=== PATIENT | male | born 1960 | race Caucasian/White ===

== ENCOUNTER 2022-07-22 15:08 | Inpatient (IN) | payer BC, SELFPAY ==
[2022-07-22 15:11] VITALS: BP 142/94; PULSE 84; RESP 20; TEMP 36.9; O2SAT 97; BMI 20.8
--- NOTE | 2022-07-22 15:38 | EDS_ITS ---
HPI History of Present Illness Chief Complaint: Seizure Informant: patient Onset/Context/Timing Onset: Today Context: Sudden Onset Timing: Intermittent Quality: Unknown Location: Generalized Worsened by: Nothing Relieved by: Nothing Narrative Narrative: Patient presents with a seizure that occurred today. Patient states he has had seizures in the past and was taken off his antiepileptics approximately 6 months ago. Patient states his seizures were due to alcohol withdrawal. Patient states that he had some nausea and vomiting earlier this week and was unable to drink any alcohol 2 days ago because of this. Patient states she normally drinks 2 small bottles of Haris Beam per day. Patient states that the seizure occurred while he was at work. Patient states it was unwitnessed. Patient is unsure how long it lasted for. Patient states he felt dizzy prior to the seizure. Patient denies biting his tongue. [facility] Medical History HTN (hypertension) Seizures Home Medications amlodipine 2.5 mg PO/SL DAILY bp 07/22/22 [History Last Taken 07/21/22] lisinopril 20 mg tablet 20 mg PO DAILY bp 07/22/22 [History Last Taken 07/21/22] metoprolol tartrate 50 mg PO/SL DAILY bp 07/22/22 [History Last Taken 07/21/22] Allergy/AdvReac Type Severity Reaction Status Date / Time No Known Allergies Allergy Verified 07/22/22 15:09 Surgical History no surgical history no surgical history Social History Smoking Status: Current every day smoker tobacco type: cigarettes alcohol intake: current alcohol intake frequency: 3 or more drinks per day Alcohol type: hard liquor ROS ROS ED Constitutional Constitutional ED: Denies chills or fever(s) Eyes Eyes: Denies blurry vision or change in vision ENT ENT ED: Reports rhinorrhea; Denies sore throat Cardiovascular Cardiovascular: Denies chest pain or palpitations Respiratory/Chest Respiratory/Chest: Denies cough or dyspnea Gastrointestinal Gastrointestinal: Reports nausea and vomiting Genitourinary Genitourinary ED: Denies dysuria or hematuria Musculoskeletal Musculoskeletal: Denies back pain or neck pain Integumentary Denies abscess or rash Neurologic Neurologic: Denies headache(s) or weakness Allergic/Immunologic Allergic/Immunologic ED: Denies mouth swelling or urticaria EXAM Physical Exam Const Vital Signs: 07/22/22 15:11 07/22/22 17:12 07/22/22 18:33 Temperature 98.4 F 98.4 F Temperature Source Oral Oral Pulse Rate 84 83 87 Respiratory Rate 20 H 22 H 22 H Blood Pressure 142/94 H 146/90 H 146/90 H Blood Pressure Mean 110 108 108 Blood Pressure Source Blood Pressure Position Blood Pressure Location Pulse Ox 97 100 98 Oxygen Delivery Method Room Air Room Air Room Air 07/22/22 18:49 Temperature Temperature Source Pulse Rate 84 Respiratory Rate 18 Blood Pressure 138/89 H Blood Pressure Mean 105 Blood Pressure Source Monitor Blood Pressure Position Semi-Fowlers Blood Pressure Location Right Arm Pulse Ox 98 Oxygen Delivery Method Room Air Positive well nourished and well developed General Appearance ED: well developed HEENT Reports moist mucous membranes Neck supple and no JVD Resp normal respiratory effort and clear to auscultation bilaterally Cardio regular rate, regular rhythm and no murmurs GI normal to inspection, nondistended, normoactive bowel sounds and non-tender Palpation: soft Extremity normal to inspection General Extremety ED: Negative for edema or tenderness General Extremity: Negative for edema Neuro oriented x3, CN's II-XII intact bilaterally and no sensory deficits noted Sensorium / Orientation: alert Motor Exam: strength 5/5 throughout Psych mental status grossly normal Skin no rashes or lesions noted MDM MDM MDM Narrative Medical decision making narrative: Seizure precautions were maintained. Patient had no further seizure activity here in the emergency department. Patient was placed on continuous cardiac and pulse oximeter monitors. CBC was essentially within normal limits. PT with INR and PTT were within normal limits. Comprehensive metabolic profile showed a creatinine of 1.57. There are no prior values for comparison. Potassium was 2.8. Patient was given a dose of oral potassium here. Lactate was normal at 2.0. Serum alcohol level was less than 3. Urinalysis shows leukocyte esterase of 100. There were 5-10 white blood cells. There is 1+ bacteria. Nitrates were positive. Urine culture was ordered. Patient was given a dose of Keflex. Patient is requesting detox from alcohol. Case was discussed with the hospitalist. He will admit the patient for alcohol detox. Patient was given a dose of phenobarbital. Patient understood and was agreeable with plan. All questions were answered. Lab Data Attestation: I reviewed the patient's lab results. Labs: Laboratory Results - last 24 hr 07/22/22 07/22/22 07/22/22 15:45 15:45 15:45 WBC 9.1 RBC 2.91 L Hgb 12.6 L Hct 34.9 L MCV 119.9 H MCH 43.3 H MCHC 36.1 H RDW Std Deviation 60.2 H RDW Coeff of Maryana 13.4 Plt Count 122 L MPV 11.1 Immature Gran % (Auto) 1.300 H Neut % (Auto) 81.0 H Lymph % (Auto) 8.9 L [place] % (Auto) 8.3 Eos % (Auto) 0.2 Baso % (Auto) 0.3 Absolute Neuts (auto) 7.3 Absolute Lymphs (auto) 0.81 L Nucleated RBC % 0 PT 13.2 INR 1.0 APTT 26.5 Sodium 137 Potassium 2.8 L Chloride 100 Carbon Dioxide 28.0 Anion Gap 9 BUN 12 Creatinine 1.57 H Estim Creat Clear Calc 41.99 Est GFR (MDRD) Af Amer 58 L Est GFR (MDRD) Non-Af 48 L BUN/Creatinine Ratio 7.6 L Glucose 123 H Lactic Acid Calcium 8.4 L Phosphorus Magnesium Total Bilirubin 1.10 H AST 86 H ALT 48 Alkaline Phosphatase 178 H Total Protein 7.0 Albumin 3.7 Globulin 3.3 Albumin/Globulin Ratio 1.1 Urine Color Urine Clarity Urine pH Ur Specific [place] Urine Protein Urine Glucose (UA) Urine Ketones Urine Occult Blood Urine Nitrite Urine Bilirubin Urine Urobilinogen Ur Leukocyte Esterase Urine RBC Urine WBC Ur Squamous Epith Cells Urine Bacteria Hyaline Casts Urine Mucus Ethyl Alcohol 07/22/22 07/22/22 07/22/22 15:45 15:45 15:45 WBC RBC Hgb Hct MCV MCH MCHC RDW Std Deviation RDW Coeff of Maryana Plt Count MPV Immature Gran % (Auto) Neut % (Auto) Lymph % (Auto) [place] % (Auto) Eos % (Auto) Baso % (Auto) Absolute Neuts (auto) Absolute Lymphs (auto) Nucleated RBC % PT INR APTT Sodium Potassium Chloride Carbon Dioxide Anion Gap BUN Creatinine Estim Creat Clear Calc Est GFR (MDRD) Af Amer Est GFR (MDRD) Non-Af BUN/Creatinine Ratio Glucose Lactic Acid 2.0 Calcium Phosphorus 2.0 L Magnesium 1.3 L Total Bilirubin AST ALT Alkaline Phosphatase Total Protein Albumin Globulin Albumin/Globulin Ratio Urine Color Urine Clarity Urine pH Ur Specific [place] Urine Protein Urine Glucose (UA) Urine Ketones Urine Occult Blood Urine Nitrite Urine Bilirubin Urine Urobilinogen Ur Leukocyte Esterase Urine RBC Urine WBC Ur Squamous Epith Cells Urine Bacteria Hyaline Casts Urine Mucus Ethyl Alcohol < 3.0 07/22/22 16:00 WBC RBC Hgb Hct MCV MCH MCHC RDW Std Deviation RDW Coeff of Maryana Plt Count MPV Immature Gran % (Auto) Neut % (Auto) Lymph % (Auto) [place] % (Auto) Eos % (Auto) Baso % (Auto) Absolute Neuts (auto) Absolute Lymphs (auto) Nucleated RBC % PT INR APTT Sodium Potassium Chloride Carbon Dioxide Anion Gap BUN Creatinine Estim Creat Clear Calc Est GFR (MDRD) Af Amer Est GFR (MDRD) Non-Af BUN/Creatinine Ratio Glucose Lactic Acid Calcium Phosphorus Magnesium Total Bilirubin AST ALT Alkaline Phosphatase Total Protein Albumin Globulin Albumin/Globulin Ratio Urine Color Brianda Urine Clarity Sl. Cloudy Urine pH 6.0 Ur Specific [place] 1.025 Urine Protein 100 H Urine Glucose (UA) Normal Urine Ketones 15 H Urine Occult Blood 25 H Urine Nitrite Positive H Urine Bilirubin 3 H Urine Urobilinogen 8 H Ur Leukocyte Esterase 100 H Urine RBC 0-5 SEEN Urine WBC 5-10 SEEN Ur Squamous Epith Cells 0 SEEN Urine Bacteria 1+ Hyaline Casts 10-25 SEEN Urine Mucus 1+ Ethyl Alcohol Radiography Diagnostic Testing: Clinical Impression(s) from Imaging Studies Brain CT 07/22/22 15:41 IMPRESSION: There are no acute intracranial findings. Electronically Signed: Conner Sargent MD at 16:24 EDT , Discharge Plan Dx/Rx/DC Orders Clinical Impression: Alcohol withdrawal seizure, Desire for detoxification, Alcohol abuse, Hypokalemia Disposition Disposition: Acute Care Hospital [facility] Discharge Date/Time: 07/22/22 19:30
--- NOTE | 2022-07-22 15:41 | EKG12_ITS ---
Test Reason : SYNCOPE Blood Pressure : / mmHG Vent. Rate : 087 BPM Atrial Rate : 087 BPM P-R Int : 162 ms QRS Dur : 100 ms QT Int : 414 ms P-R-T Axes : 073 094 079 degrees QTc Int : 498 ms Normal sinus rhythm Incomplete right bundle branch block Possible Right ventricular hypertrophy Prolonged QT Abnormal ECG Confirmed by JOSE DE LA PAZ, DEIRDRE ([id number]), features editor DEANNA KNUTSON ([id number]) on 07/24/2022 10:03:25 AM Referred By: ROSA MARIA Confirmed By:DEIRDRE GARCIA MD
--- NOTE | 2022-07-22 15:41 | CT_ITS ---
STUDY: CT BRAIN WITHOUT CONTRAST REASON FOR EXAM: Male, 61 years old. Seizure TECHNIQUE: Transaxial CT imaging of the brain was performed without administration of intravenous contrast material. Individualized dose optimization techniques were used for this CT. COMPARISON: None FINDINGS: Normal calvarium. Normal soft tissues. Normal size ventricles and extra-axial spaces for the patient''s age. Normal white matter tracts of the cerebral hemispheres. Normal basal ganglia and thalami. Normal brainstem. Normal cerebellum. There is no intracranial hemorrhage. There are no findings of an acute ischemic infarction. There is sinus disease. ASPECTS 10 CT/Brain/Head without Contrast IMPRESSION: There are no acute intracranial findings. Electronically Signed: Conner Sargent MD at 16:24 EDT ,
[2022-07-22 16:01] LABS: Absolute Lymphocyte Count 0.81 X10^3/uL (0.83-4.51); Absolute Neutrophil Count 7.3 X10^3/uL (2.0-7.7); Basophil# 0.03 X10^3/uL; Basophil% 0.3 % (0-1); Eosinophil# 0.02 X10^3/uL; Eosinophils% 0.2 % (0-5); Hematocrit 34.9 % (40-54); Hemoglobin 12.6 g/dL (13.0-16.5); Lymphocyte # 0.81 X10^3/ul (0.83-4.51); Lymphocyte % 8.9 % (19-41); Mean Corp Hgb Conc 36.1 g/dL (32-36); Mean Corpuscular Hgb 43.3 pg (27.0-32.0); Mean Corpuscular Volume 119.9 fL (80-94); Mean Platelet Vol. 11.1 fl (6.2-12.0); Monocyte# 0.75 X10^3/uL; Monocyte% 8.3 % (0-10); NRBC Flagged by Analyzer 0 % (0-5); Neutrophil # 7.34 X10^3/uL (2.7-7.7); Platelet Count 122 K/mm3 (150-450); RBC Distribution Width CV 13.4 % (11.6-14.6); RBC Distribution Width SD 60.2 fl (35.1-43.9); Red Blood Count 2.91 M/mm3 (4.6-6.2); White Blood Count 9.1 K/mm3 (4.4-11.0)
--- NOTE | 2022-07-22 16:02 | NURSING ---
NO OLD EKGS
[2022-07-22 16:07] LABS: Squamous Epithelial Cells - UA 0 SEEN /hpf (0-5)
[2022-07-22 16:10] LABS: Color, Urine Amber (Yellow); Glucose, Dipstick Normal (Normal); Ketone-Dipstick 15 mg/dl (Negative); Leukocyte Esterase-Dipstick 100 /ul (Negative); Nitrite-Dipstick Positive (Negative); Occult Blood-Urine 25 /ul (Negative); Protein-Dipstick 100 mg/dl (Negative); Specific Gravity, Urine 1.025 (1.002-1.030); Urine Clarity Sl. Cloudy (Clear); Urine Urobilinogen 8 mg/dl (Normal)
[2022-07-22 16:16] LABS: Urine Bilirubin Dipstick 3 mg/dL (Negative)
[2022-07-22 16:17] LABS: Prothrombin Time (Protime)PT. 13.2 SECONDS (11.7-14.9)
[2022-07-22 16:18] LABS: ALB/GLOB Ratio 1.1 RATIO (0.9-2.4); AST(SGOT) 86 U/L (15-37); Alanine Aminotransfer ALT/SGPT 48 U/L (16-61); Albumin, Serum 3.7 g/dL (3.2-5.0); Alkaline Phosphatase 178 U/L (45-117); Anion Gap 9 (5-15); BUN 12 mg/dL (7-18); BUN/Creat Ratio 7.6 RATIO (10-20); Calcium,Total 8.4 mg/dL (8.5-10.1); Chloride 100 mmol/L (98-107); Creatinine, Serum 1.57 mg/dL (0.70-1.30); EST Glomerular Filtration Rate 48 mL/min (>60); Est Glom Filt Rate - Afr Amer 58 mL/min (>60); Estimated Creatinine Clearance 41.99 ml/min; Globulin 3.3 g/dL (2.2-4.2); Glucose 123 mg/dL (74-106); Partial Thromboplast Time 26.5 Seconds (24.1-36.2); Potassium 2.8 mmol/L (3.5-5.1); Sodium Level 137 mmol/L (136-145)
[2022-07-22 16:19] LABS: Alcohol, Blood (Medical)-Serum < 3.0 mg/dL
[2022-07-22] MEDS: Potassium Chloride Oral Tablet 20 MEQ 40 MEQ PO (17:06)
[2022-07-22] MEDS: 0.9% Normal Saline 1,000 ML 1000 ML IV (17:06)
[2022-07-22 17:12] VITALS: BP 146/90; PULSE 83; RESP 22; O2SAT 100
[2022-07-22 17:53] LABS: Bacteria 1+ /hpf (None Seen); Hyaline Cast 10-25 SEEN /lpf (0-5); Mucous, Urine 1+ /hpf (<or=2+); Red Blood Cells-Urine 0-5 SEEN /hpf (0-5); White Blood Cells 5-10 SEEN /hpf (0-5)
--- NOTE | 2022-07-22 18:22 | NURSING ---
DR MATAMOROS FOR DR CRANE
[2022-07-22 18:33] VITALS: BP 146/90; PULSE 87; RESP 22; TEMP 36.9; O2SAT 98
[2022-07-22] MEDS: Cephalexin 500 MG Capsule PO (18:42)
[2022-07-22] MEDS: Phenobarbital 32.4 MG Tablet PO (18:42)
[2022-07-22 18:49] VITALS: BP 138/89; PULSE 84; RESP 18; O2SAT 98
--- NOTE | 2022-07-22 19:11 | PCM.HP.STD ---
Documented by User: KRISHAN Koo 07/22/22 19:21 HPI - General General Date of Admission: 07/22/22 Date of Service: 07/22/22 Chief Complaint: Desire for detoxification, alcoholic seizures HPI Narrative TESHA DIEZ, is a 61 M who presents following a seizure at work. Patient states that he has had alcoholic withdrawal seizures in the past. Patient states that his last drink was approximately 8 PM yesterday. Patient states that he would like assistance with withdrawing from alcohol. Patient reports a medical history of hypertension. Patient has not had any seizures in the ER. Patient given first dose of phenobarbital in ER. Patient reports that he drinks anywhere from 2-4 fifths of whiskey a day. Patient also reports that he smokes a pack a day of cigarettes. [facility] Medical History HTN (hypertension) Seizures Home Medications amlodipine 2.5 mg PO/SL DAILY bp 07/22/22 [History Last Taken 07/21/22] lisinopril 20 mg tablet 20 mg PO DAILY bp 07/22/22 [History Last Taken 07/21/22] metoprolol tartrate 50 mg PO/SL DAILY bp 07/22/22 [History Last Taken 07/21/22] Allergy/AdvReac Type Severity Reaction Status Date / Time No Known Allergies Allergy Verified 07/22/22 15:09 Surgical History no surgical history Social History Smoking Status: Current every day smoker tobacco type: cigarettes alcohol intake: current alcohol intake frequency: 3 or more drinks per day Alcohol type: hard liquor ROS Constitutional Constitutional: Reports malaise; Denies anorexia, chills or fatigue Cardiovascular Cardiovascular: Denies chest pain, edema or syncope Respiratory/Chest Respiratory/Chest: Denies cough, shortness of breath at rest, shortness of breath with exertion or wheezing Gastrointestinal Gastrointestinal: Denies abdominal pain, constipation, diarrhea, nausea or vomiting Genitourinary Genitourinary: Denies dysuria Musculoskeletal Musculoskeletal: Denies back pain, extremity pain, joint pain or joint stiffness Integumentary Integumentary: Denies dry skin Neurologic Neurologic: Reports seizures and other Details: Loss of bladder or bowel control, chronic for patient ; Denies abnormal gait, abnormal speech, confusion or dizziness Psychiatric Psychiatric: Denies anxiety or depression Endocrine Endocrinology: Denies change in body appearance Vital Signs Vital Signs Vital Signs: 07/22/22 15:11 07/22/22 17:12 07/22/22 18:33 Temperature 98.4 F 98.4 F Temperature Source Oral Oral Pulse Rate 84 83 87 Respiratory Rate 20 H 22 H 22 H Blood Pressure 142/94 H 146/90 H 146/90 H Blood Pressure Mean 110 108 108 Blood Pressure Source Blood Pressure Position Blood Pressure Location Pulse Ox 97 100 98 Oxygen Delivery Method Room Air Room Air Room Air 07/22/22 18:49 Temperature Temperature Source Pulse Rate 84 Respiratory Rate 18 Blood Pressure 138/89 H Blood Pressure Mean 105 Blood Pressure Source Monitor Blood Pressure Position Semi-Fowlers Blood Pressure Location Right Arm Pulse Ox 98 Oxygen Delivery Method Room Air Weight Weight: 129 lb 3.054 oz Body Mass Index (BMI) 20.8 Physical Exam Const alert, oriented x3 and no apparent distress General Appearance: cooperative HEENT normocephalic and head/scalp atraumatic Eyes conjunctivae normal and no scleral icterus Neck supple General: trachea midline Lymph Lymphatic: no lymphadenopathy noted Resp normal respiratory effort, normal air movement and clear to auscultation bilaterally Cardio regular rate, regular rhythm, S1 normal heart sound, S2 normal heart sound and peripheral pulses 2+ throughout GI normal to inspection, nondistended, normoactive bowel sounds, soft to palpation and non-tender Extremity normal capillary refill and no clubbing, cyanosis or edema Skin General Skin Exam: no breakdown Lesions: no lesions Rashes: no rashes Neuro no focal motor deficits and no sensory deficits noted Speech: speech normal Psych thought process normal, cooperative and affect normal Results Lab / Micro Data Result Diagrams: 07/22/22 15:45 07/22/22 15:45 Labs: Laboratory Results - last 24 hr 07/22/22 15:45: WBC 9.1, RBC 2.91 L, Hgb 12.6 L, Hct 34.9 L, MCV 119.9 H, MCH 43.3 H, MCHC 36.1 H, RDW Std Deviation 60.2 H, RDW Coeff of Maryana 13.4, Plt Count 122 L, MPV 11.1, Immature Gran % (Auto) 1.300 H, Neut % (Auto) 81.0 H, Lymph % (Auto) 8.9 L, [place] % (Auto) 8.3, Eos % (Auto) 0.2, Baso % (Auto) 0.3, Absolute Neuts (auto) 7.3, Absolute Lymphs (auto) 0.81 L, Nucleated RBC % 0 07/22/22 15:45: PT 13.2, INR 1.0, APTT 26.5 07/22/22 15:45: Sodium 137, Potassium 2.8 L, Chloride 100, Carbon Dioxide 28.0, Anion Gap 9, BUN 12, Creatinine 1.57 H, Estim Creat Clear Calc 41.99, Est GFR (MDRD) Af Amer 58 L, Est GFR (MDRD) Non-Af 48 L, BUN/Creatinine Ratio 7.6 L, Glucose 123 H, Calcium 8.4 L, Total Bilirubin 1.10 H, AST 86 H, ALT 48, Alkaline Phosphatase 178 H, Total Protein 7.0, Albumin 3.7, Globulin 3.3, Albumin/Globulin Ratio 1.1 07/22/22 15:45: Ethyl Alcohol < 3.0 07/22/22 15:45: Lactic Acid 2.0 07/22/22 16:00: Urine Color Bri[place], Urine Clarity Sl. Cloudy, Urine pH 6.0, Ur Specific [place] 1.025, Urine Protein 100 H, Urine Glucose (UA) Normal, Urine Ketones 15 H, Urine Occult Blood 25 H, Urine Nitrite Positive H, Urine Bilirubin 3 H, Urine Urobilinogen 8 H, Ur Leukocyte Esterase 100 H, Urine RBC 0-5 SEEN, Urine WBC 5-10 SEEN, Ur Squamous Epith Cells 0 SEEN, Urine Bacteria 1+, Hyaline Casts 10-25 SEEN, Urine Mucus 1+ Radiology Impression Brain CT 07/22/22 15:41 IMPRESSION: There are no acute intracranial findings. Electronically Signed: Conner Sargent MD at 16:24 EDT Reading Location ID and State: [facility] / [place] , Service support , Assessment & Plan Assessment/Plan (1) Alcohol withdrawal seizure: (2) Desire for detoxification: (3) Alcohol abuse: (4) Hypokalemia: PLAN: Plan 1. Desire for detoxification from alcohol secondary to alcohol abuse -Admit to [facility] -Phenobarbital taper -Supportive medications ordered for symptom management -Case management consulted for coordination with 180 2. Hypokalemia -Patient given 40 mEq p.o. potassium given in ER -Potassium chloride 40 mEq IV x1 given -CMP daily -phosphorus and magnesium levels ordered 3. Urinary tract infection -Keflex given in ER, will continue -Urine culture pending 4. Hypertension -Continue lisinopril and amlodipine -Vital signs per protocol, currently stable 5. Tobacco abuse -Nicotine patch ordered daily DVT prophylaxis-encourage ambulation, low risk this patient was seen by OLIMPIA KooC under the supervision of Dr. Mccord. 29 minutes spent in clinical coordination of patient's plan of care. Documented by User: Dr. Washington Mccord, 07/22/22 21:29 HPI - General General Date of Admission: 07/22/22 [facility] Medical History HTN (hypertension) Seizures Home Medications amlodipine 2.5 mg PO/SL DAILY bp 07/22/22 [History Last Taken 07/21/22] lisinopril 20 mg tablet 20 mg PO DAILY bp 07/22/22 [History Last Taken 07/21/22] metoprolol tartrate 50 mg PO/SL DAILY bp 07/22/22 [History Last Taken 07/21/22] Allergy/AdvReac Type Severity Reaction Status Date / Time No Known Allergies Allergy Verified 07/22/22 15:09 Surgical History no surgical history Social History Smoking Status: Current every day smoker tobacco type: cigarettes alcohol intake: current alcohol intake frequency: 3 or more drinks per day Alcohol type: hard liquor Results Lab / Micro Data Result Diagrams: 07/22/22 15:45 07/22/22 15:45 Assessment & Plan Assessment/Plan (1) Alcohol withdrawal seizure: (2) Desire for detoxification: (3) Alcohol abuse: (4) Hypokalemia: Charges/Coding Addendum Addendum: Patient was seen and examined today independently of She Cruz, he came to the emergency room today at [facility] with a chief complaint of a seizure which occurred today, patient stated that he has had seizures in the past when he stopped his alcohol intake, patient states that he drinks approximately 2 pints of whiskey per day, patient states that he was on seizure medications but was taken off the medications approximately 6 months ago. Patient had been unable to drink alcohol early in the week secondary to nausea and vomiting. On examination he appeared older than his stated age. Vital signs as documented. Skin warm and dry and without overt rashes. Neck without JVD, neck was supple, trachea midline, thyroid was normal. Lungs clear bilaterally, normal air movement was noted. Heart exam notable for regular rhythm, normal sounds and absence of murmurs, rubs or gallops. Abdomen unremarkable and without evidence of organomegaly, masses, or abdominal aortic enlargement. Bowel sounds are present, abdomen is not distended. Extremities nonedematous, no cyanosis was noted, no clubbing was noted. Neuro: Cranial nerves II through XII are grossly intact, no focal motor deficits were noted, sensation to light touch and pinprick intact, motor exam 5/5 throughout. Psych: Patient is alert and oriented x3, he does not appear anxious or depressed, he does not appear agitated. Impression: #1 recurrent seizures probably secondary to alcohol withdrawal-patient will be admitted to [facility], he will be placed on phenobarbital for alcohol withdrawal, he will not be placed on any other seizure medications at this time. Patient is agreed to go into the ramp program. He will be seen by addiction social sciences chair tomorrow. Patient states that this examiner that he wants to do an outpatient detox program. #2 hypokalemia-patient was given oral potassium in the emergency room, he will be given IV potassium after admission and labs will be rechecked tomorrow #3 hypophosphatemia-this is mild at this time, phosphorus level will be rechecked tomorrow #4 hypomagnesemia-IV magnesium was administered, mag level will be rechecked #5 chronic alcoholism-complicates care, management, recovery, and prognosis. #6 essential hypertension-patient will remain on his home medications #7 acute cystitis-patient will be given oral antibiotics I have reviewed She Cruz's history and physical including her medical assessment and plan of care and with the above additions endorse it. Total clinical time spent by myself addressing the patient's medical issues, reviewing the data, and collaborating with patient's care team: 45-minutes Visit Charges Inpatient E&M: [id number] Init Hosp L3
--- NOTE | 2022-07-22 19:28 | CM.ED ---
Social Work Patient admitted to [facility]. Telephone call to treatment navigator, Molly. Molly updated on patient admission and room number. Mloly to updated Jaimee. Jennyfer BRUNO, JENNIFER-S
[2022-07-22 19:36] VITALS: BMI 19.4
[2022-07-22 19:36] LABS: Magnesium 1.3 mg/dL (1.6-2.6)
[2022-07-22 19:45] VITALS: BP 149/94; PULSE 78; RESP 18; TEMP 36.6; O2SAT 100
[2022-07-22 19:56] LABS: Reflex Lactate? Y
[2022-07-22] MEDS: hydrOXYzine PAM 25 MG Capsule 50 MG PO (20:08)
[2022-07-22] MEDS: Phenobarbital 32.4 MG Tablet 64.8 MG PO (20:08)
[2022-07-22] MEDS: Potassium Chloride 10mEq/100mL 10 MEQ/100 ML IV.SOLN. 100 MEQ IV BOLUS ×3 (20:38→23:10)
[2022-07-22] MEDS: Magnesium Sulfate 4gm/100mL 4 GM/100 ML IV.SOLN. IV (20:50)
[2022-07-22] MEDS: 0.9% Saline Lock 10 ML Syringe IV (20:50)
[2022-07-22] MEDS: Ensure Plus High Protein 120 ML LIQUID PO (21:16)
[2022-07-22 22:00] VITALS: BP 132/82; PULSE 80; RESP 16; TEMP 36.7; O2SAT 97
[2022-07-23] VITALS (8 sets, daily range): BP systolic 132–159; BP diastolic 83–99; PULSE 66–81; RESP 14–18; TEMP 36.6–36.9; O2SAT 96–99
[2022-07-23] MEDS: Potassium Chloride 10mEq/100mL 10 MEQ/100 ML IV.SOLN. 100 MEQ IV BOLUS (00:21)
[2022-07-23] MEDS: Cephalexin 500 MG Capsule PO ×5 (00:24→23:30)
[2022-07-23] MEDS: Phenobarbital 32.4 MG Tablet 64.8 MG PO ×7 (00:25→23:30)
[2022-07-23 07:18] LABS: Absolute Lymphocyte Count 1.33 X10^3/uL (0.83-4.51); Absolute Neutrophil Count 4.1 X10^3/uL (2.0-7.7); Basophil# 0.03 X10^3/uL; Basophil% 0.5 % (0-1); Eosinophils% 1.6 % (0-5); Hematocrit 33.9 % (40-54); Hemoglobin 12.3 g/dL (13.0-16.5); Lymphocyte # 1.33 X10^3/ul (0.83-4.51); Mean Corp Hgb Conc 36.3 g/dL (32-36); Mean Corpuscular Hgb 43.3 pg (27.0-32.0); Mean Corpuscular Volume 119.4 fL (80-94); Mean Platelet Vol. 10.7 fl (6.2-12.0); Monocyte# 0.69 X10^3/uL; Monocyte% 10.9 % (0-10); NRBC Flagged by Analyzer 0 % (0-5); Neutrophil # 4.11 X10^3/uL (2.7-7.7); Neutrophil % 64.7 % (47-70); POSITIVE COUNT YES; Platelet Count 97 K/mm3 (150-450); RBC Distribution Width CV 13.5 % (11.6-14.6); RBC Distribution Width SD 60.2 fl (35.1-43.9); Red Blood Count 2.84 M/mm3 (4.6-6.2); White Blood Count 6.3 K/mm3 (4.4-11.0)
[2022-07-23 07:47] LABS: Phosphorus 1.5 mg/dL (2.5-4.9)
[2022-07-23 07:53] LABS: AST(SGOT) 91 U/L (15-37); Alanine Aminotransfer ALT/SGPT 43 U/L (16-61); Alkaline Phosphatase 150 U/L (45-117); Anion Gap 5 (5-15); BUN 10 mg/dL (7-18); BUN/Creat Ratio 11.6 RATIO (10-20); Chloride 105 mmol/L (98-107); Creatinine, Serum 0.86 mg/dL (0.70-1.30); EST Glomerular Filtration Rate 96 mL/min (>60); Est Glom Filt Rate - Afr Amer 116 mL/min (>60); Estimated Creatinine Clearance 71.42 ml/min; Globulin 2.9 g/dL (2.2-4.2); Glucose 100 mg/dL (74-106); Magnesium 2.6 mg/dL (1.6-2.6); Potassium 3.2 mmol/L (3.5-5.1); Protein, Total 5.9 g/dL (6.4-8.2); Sodium Level 138 mmol/L (136-145)
[2022-07-23] MEDS: Folic Acid 1 MG Tablet PO (08:17)
[2022-07-23] MEDS: Thiamine Hydrochloride 100 MG Tablet PO (08:17)
--- NOTE | 2022-07-23 08:23 | PCM.PN.HOSP ---
Subjective Subjective Follow-up on acute alcohol withdrawal/alcoholic related seizure: Patient was seen and examined. Denied any new complaints. No acute events overnight Objective Data Objective Data Vital Signs: Vital Signs Temp Pulse Resp BP Pulse Ox O2 Del Method 98.1 F 79 18 159/86 H 99 Room Air 07/23/22 08:22 07/23/22 08:22 07/23/22 08:22 07/23/22 08:22 07/23/22 08:22 07/23/22 08:22 Oxygen Delivery Method Room Air Weight: 54.6 kg Body Mass Index (BMI) 19.4 Intake & Output: Intake and Output for Last 24 Hours 07/21/22 07/22/22 07/23/22 23:59 23:59 23:59 Intake Total 1200 / 1200 300 / 300 Balance 1200 / 1200 300 / 300 Lab / Micro Data Result Diagrams: 07/23/22 06:40 07/23/22 06:40 Labs: Laboratory Results - last 24 hr 07/22/22 15:45: WBC 9.1, RBC 2.91 L, Hgb 12.6 L, Hct 34.9 L, MCV 119.9 H, MCH 43.3 H, MCHC 36.1 H, RDW Std Deviation 60.2 H, RDW Coeff of Maryana 13.4, Plt Count 122 L, MPV 11.1, Immature Gran % (Auto) 1.300 H, Neut % (Auto) 81.0 H, Lymph % (Auto) 8.9 L, [place] % (Auto) 8.3, Eos % (Auto) 0.2, Baso % (Auto) 0.3, Absolute Neuts (auto) 7.3, Absolute Lymphs (auto) 0.81 L, Nucleated RBC % 0 07/22/22 15:45: PT 13.2, INR 1.0, APTT 26.5 07/22/22 15:45: Sodium 137, Potassium 2.8 L, Chloride 100, Carbon Dioxide 28.0, Anion Gap 9, BUN 12, Creatinine 1.57 H, Estim Creat Clear Calc 41.99, Est GFR (MDRD) Af Amer 58 L, Est GFR (MDRD) Non-Af 48 L, BUN/Creatinine Ratio 7.6 L, Glucose 123 H, Calcium 8.4 L, Total Bilirubin 1.10 H, AST 86 H, ALT 48, Alkaline Phosphatase 178 H, Total Protein 7.0, Albumin 3.7, Globulin 3.3, Albumin/Globulin Ratio 1.1 07/22/22 15:45: Ethyl Alcohol < 3.0 07/22/22 15:45: Lactic Acid 2.0 07/22/22 15:45: Phosphorus 2.0 L, Magnesium 1.3 L 07/22/22 16:00: Urine Color Brianda, Urine Clarity Sl. Cloudy, Urine pH 6.0, Ur Specific [place] 1.025, Urine Protein 100 H, Urine Glucose (UA) Normal, Urine Ketones 15 H, Urine Occult Blood 25 H, Urine Nitrite Positive H, Urine Bilirubin 3 H, Urine Urobilinogen 8 H, Ur Leukocyte Esterase 100 H, Urine RBC 0-5 SEEN, Urine WBC 5-10 SEEN, Ur Squamous Epith Cells 0 SEEN, Urine Bacteria 1+, Hyaline Casts 10-25 SEEN, Urine Mucus 1+ 07/22/22 20:25: Lactic Acid 1.0 07/23/22 06:40: WBC 6.3, RBC 2.84 L, Hgb 12.3 L, Hct 33.9 L, MCV 119.4 H, MCH 43.3 H, MCHC 36.3 H, RDW Std Deviation 60.2 H, RDW Coeff of Maryana 13.5, Plt Count 97 L, MPV 10.7, Immature Gran % (Auto) 1.300 H, Neut % (Auto) 64.7, Lymph % (Auto) 21.0, [place] % (Auto) 10.9 H, Eos % (Auto) 1.6, Baso % (Auto) 0.5, Absolute Neuts (auto) 4.1, Absolute Lymphs (auto) 1.33, Nucleated RBC % 0 07/23/22 06:40: Sodium 138, Potassium 3.2 L, Chloride 105, Carbon Dioxide 28.0, Anion Gap 5, BUN 10, Creatinine 0.86, Estim Creat Clear Calc 71.42, Est GFR (MDRD) Af Amer 116, Est GFR (MDRD) Non-Af 96, BUN/Creatinine Ratio 11.6, Glucose 100, Calcium 8.0 L, Magnesium 2.6, Total Bilirubin 0.90, AST 91 H, ALT 43, Alkaline Phosphatase 150 H, Total Protein 5.9 L, Albumin 3.0 L, Globulin 2.9, Albumin/Globulin Ratio 1.0 07/23/22 06:40: Phosphorus 1.5 L Radiography Diagnostic Testing: Radiology Impression Brain CT 07/22/22 15:41 IMPRESSION: There are no acute intracranial findings. Electronically Signed: Conner Sargent MD at 16:24 EDT Reading Location ID and State: [facility] / [place] , Service support , Physical Exam Narrative Physical exam: General: Alert, Oriented x3, Cooperative, No apparent distress HEENT: Atraumatic Oral: Moist Mucosa Neck: Supple Lungs: Clear to auscultation Cardiovascular: HS I+II, regular, no murmurs Abdomen: Bowel Sounds Present, Soft, Non Tender Extremities: No edema Skin: No rashes, No breakdown Neurological: Grossly intact Psych/Mental Status: Appropriate Assessment & Plan Assessment/Plan (1) Alcohol withdrawal seizure: (2) Alcohol abuse: (3) Hypokalemia: PLAN: Plan 1. Acute alcohol withdrawal seizure, no seizures seen since admission Continue on phenobarbital withdrawal protocol, continue on seizure precautions 2. Hypokalemia/hypophosphatemia/hypomagnesemia, replaced, recheck in a.m. 3. Hypertension, fairly controlled, admission reconcilation is pending. Will resume when medrec is done 4. Nicotine dependence, on replacement 5. Acute UTI, continue on Keflex, urine cultures pending 6. DVT PPx- early ambulation Charges/Coding Visit Charges Inpatient E&M: 68767 Subs Hosp L2
[2022-07-23] MEDS: Potassium Chloride Oral Tablet 20 MEQ 60 MEQ PO (09:13)
--- NOTE | 2022-07-23 09:26 | NURSING ---
Message left with PCPs office as patient was unsure of home med doses. Awaiting call back.
[2022-07-23] MEDS: Na Biphos/Potassium Phosphate PACKET 1 PACKET PO ×4 (11:52→23:30)
--- NOTE | 2022-07-23 11:52 | ADDICTION ---
This telegraphic typewriter operator chief met with PT to conduct ASAM, MSE, AUDIT, DUDIT assessments and to plan for d/c. PT A+Ox4 and participated actively. All assessments completed and placed in PT's chart. PT plans to f/u with [facility] for outpatient treatment services. PT did not indicate a need for transportation post d/c from [facility].
[2022-07-23] MEDS: Acetaminophen 325 MG Tablet 650 MG PO (16:16)
[2022-07-23] MEDS: 0.9% Saline Lock 10 ML Syringe IV (23:30)
[2022-07-24] VITALS (7 sets, daily range): BP systolic 141–161; BP diastolic 82–98; PULSE 73–88; RESP 18; TEMP 36.1–36.9; O2SAT 97–99
[2022-07-24] MEDS: Phenobarbital 32.4 MG Tablet 64.8 MG PO ×5 (04:56→20:09)
[2022-07-24] MEDS: Cephalexin 500 MG Capsule PO (04:57)
[2022-07-24 06:06] LABS: Absolute Lymphocyte Count 1.48 X10^3/uL (0.83-4.51); Absolute Neutrophil Count 3.9 X10^3/uL (2.0-7.7); Basophil# 0.02 X10^3/uL; Basophil% 0.3 % (0-1); Eosinophils% 1.6 % (0-5); Hematocrit 32.8 % (40-54); Hemoglobin 11.8 g/dL (13.0-16.5); Lymphocyte # 1.48 X10^3/ul (0.83-4.51); Lymphocyte % 24.3 % (19-41); Mean Corpuscular Hgb 44.4 pg (27.0-32.0); Mean Corpuscular Volume 123.3 fL (80-94); Mean Platelet Vol. 10.4 fl (6.2-12.0); Monocyte% 8.2 % (0-10); NRBC Flagged by Analyzer 0 % (0-5); Neutrophil # 3.91 X10^3/uL (2.7-7.7); Neutrophil % 64.4 % (47-70); POSITIVE COUNT YES; Platelet Count 98 K/mm3 (150-450); RBC Distribution Width CV 13.2 % (11.6-14.6); RBC Distribution Width SD 59.8 fl (35.1-43.9); Red Blood Count 2.66 M/mm3 (4.6-6.2); White Blood Count 6.1 K/mm3 (4.4-11.0)
[2022-07-24 06:32] LABS: Albumin, Serum 2.8 g/dL (3.2-5.0); BUN 11 mg/dL (7-18); BUN/Creat Ratio 12.8 RATIO (10-20); Chloride 105 mmol/L (98-107); Creatinine, Serum 0.86 mg/dL (0.70-1.30); EST Glomerular Filtration Rate 97 mL/min (>60); Est Glom Filt Rate - Afr Amer 117 mL/min (>60); Estimated Creatinine Clearance 71.42 ml/min; Glucose 132 mg/dL (74-106); Phosphorus 2.8 mg/dL (2.5-4.9); Potassium 3.9 mmol/L (3.5-5.1); Sodium Level 138 mmol/L (136-145)
[2022-07-24] MEDS: amLODIPine 10 MG Tablet PO (08:25)
[2022-07-24] MEDS: Lisinopril 20 MG Tablet PO (08:25)
[2022-07-24] MEDS: Metoprolol Tartrate 50 MG Tablet PO ×2 (08:25→20:11)
[2022-07-24] MEDS: Thiamine Hydrochloride 100 MG Tablet PO (08:25)
[2022-07-24] MEDS: Folic Acid 1 MG Tablet PO (08:25)
--- NOTE | 2022-07-24 10:22 | PN.HOSP_ITS ---
Subjective Subjective Follow-up on acute alcohol withdrawal/alcoholic related seizure: Patient was seen and examined.?Denied any new complaints.?No acute events overnight Objective Data Objective Data Vital Signs: Vital Signs Temp Pulse Resp BP Pulse Ox O2 Del Method 97.0 F L 78 18 161/89 H 99 Room Air 07/24/22 08:23 07/24/22 08:25 07/24/22 08:23 07/24/22 08:23 07/24/22 08:23 07/24/22 08:23 Oxygen Delivery Method Room Air Weight: 54.6 kg Body Mass Index (BMI) 19.4 Intake & Output: Intake and Output for Last 24 Hours 07/22/22 07/23/22 07/24/22 23:59 23:59 23:59 Intake Total 1200 / 1200 358.75 / 358.75 Balance 1200 / 1200 358.75 / 358.75 Lab / Micro Data Result Diagrams: 07/24/22 05:50 07/24/22 05:50 Labs: Laboratory Results - last 24 hr 07/24/22 05:50: WBC 6.1, RBC 2.66 L, Hgb 11.8 L, Hct 32.8 L, MCV 123.3 H, MCH 44.4 H, MCHC 36.0, RDW Std Deviation 59.8 H, RDW Coeff of Maryana 13.2, Plt Count 98 L, MPV 10.4, Immature Gran % (Auto) 1.200 H, Neut % (Auto) 64.4, Lymph % (Auto) 24.3, [place] % (Auto) 8.2, Eos % (Auto) 1.6, Baso % (Auto) 0.3, Absolute Neuts (auto) 3.9, Absolute Lymphs (auto) 1.48, Nucleated RBC % 0 07/24/22 05:50: Sodium 138, Potassium 3.9, Chloride 105, Carbon Dioxide 26.0, BUN 11, Creatinine 0.86, Estim Creat Clear Calc 71.42, Est GFR (MDRD) Af Amer 117, Est GFR (MDRD) Non-Af 97, BUN/Creatinine Ratio 12.8, Glucose 132 H, Calcium 8.0 L, Phosphorus 2.8, Albumin 2.8 L Physical Exam Narrative Physical exam: General: Alert, Oriented x3, Cooperative, No apparent distress HEENT: Atraumatic Oral: Moist Mucosa Neck: Supple Lungs: Clear to auscultation Cardiovascular: HS I+II, regular, no murmurs Abdomen: Bowel Sounds Present, Soft, Non Tender Extremities: No edema Skin: No rashes, No breakdown Neurological: Grossly intact Psych/Mental Status: Appropriate Assessment & Plan Assessment/Plan (1) Alcohol withdrawal seizure: (2) Alcohol abuse: (3) Hypokalemia: PLAN: Plan 1. Acute alcohol withdrawal seizure, no seizures seen since admission Continue on phenobarbital withdrawal protocol, continue on seizure precautions 2. Hypokalemia/hypophosphatemia/hypomagnesemia, replaced, recheck in a.m. 3. Hypertension, fairly controlled, just started on metoprolol Will continue on metoprolol tartrate 50mg BID, Lisinopril 20mg daily 4. Nicotine dependence, on replacement 5. Asymptomatic bacteriuria, Acute UTI ruled out, patient denied any symptoms b efore admission Will discontinue Keflex 6. DVT PPx- early ambulation Charges/Coding Visit Charges Inpatient E&M: 33438 Subs Hosp L2
[2022-07-25] MEDS: Phenobarbital 32.4 MG Tablet 64.8 MG PO ×3 (00:01→10:12)
[2022-07-25 04:00] VITALS: BP 147/107; PULSE 72; RESP 16; TEMP 36.3; O2SAT 99
[2022-07-25 06:37] LABS: Absolute Lymphocyte Count 1.49 X10^3/uL (0.83-4.51); Absolute Neutrophil Count 6.2 X10^3/uL (2.0-7.7); Basophil# 0.04 X10^3/uL; Basophil% 0.5 % (0-1); Eosinophil# 0.13 X10^3/uL; Eosinophils% 1.5 % (0-5); Hematocrit 34.3 % (40-54); Hemoglobin 12.3 g/dL (13.0-16.5); Lymphocyte # 1.49 X10^3/ul (0.83-4.51); Lymphocyte % 17.4 % (19-41); Mean Corp Hgb Conc 35.9 g/dL (32-36); Mean Corpuscular Hgb 43.8 pg (27.0-32.0); Mean Corpuscular Volume 122.1 fL (80-94); Mean Platelet Vol. 10.6 fl (6.2-12.0); Monocyte# 0.62 X10^3/uL; Monocyte% 7.2 % (0-10); NRBC Flagged by Analyzer 0 % (0-5); Neutrophil % 72.5 % (47-70); Platelet Count 115 K/mm3 (150-450); RBC Distribution Width CV 12.9 % (11.6-14.6); RBC Distribution Width SD 57.7 fl (35.1-43.9); Red Blood Count 2.81 M/mm3 (4.6-6.2); White Blood Count 8.6 K/mm3 (4.4-11.0)
[2022-07-25 06:56] LABS: BUN 11 mg/dL (7-18); Creatinine, Serum 0.73 mg/dL (0.70-1.30); Estimated Creatinine Clearance 84.14 ml/min; Glucose 86 mg/dL (74-106)
[2022-07-25 06:57] LABS: Albumin, Serum 2.9 g/dL (3.2-5.0); BUN/Creat Ratio 15.1 RATIO (10-20); Calcium,Total 8.6 mg/dL (8.5-10.1); Chloride 104 mmol/L (98-107); EST Glomerular Filtration Rate 117 mL/min (>60); Est Glom Filt Rate - Afr Amer 141 mL/min (>60); Potassium 4.4 mmol/L (3.5-5.1); Sodium Level 136 mmol/L (136-145)
--- NOTE | 2022-07-25 07:48 | PN.HOSP_ITS ---
Objective Data Objective Data Vital Signs: Vital Signs Temp Pulse Resp BP Pulse Ox O2 Del Method 97.4 F L 72 16 147/107 H 99 Room Air 07/25/22 04:00 07/25/22 04:00 07/25/22 04:00 07/25/22 04:00 07/25/22 04:00 07/25/22 04:00 Oxygen Delivery Method Room Air Weight: 54.6 kg Body Mass Index (BMI) 19.4 Intake & Output: Intake and Output for Last 24 Hours 07/23/22 07/24/22 07/25/22 23:59 23:59 23:59 Intake Total 358.75 / 358.75 Balance 358.75 / 358.75 Lab / Micro Data Result Diagrams: 07/25/22 06:10 07/25/22 06:10 Labs: Laboratory Results - last 24 hr 07/25/22 06:10: WBC 8.6, RBC 2.81 L, Hgb 12.3 L, Hct 34.3 L, MCV 122.1 H, MCH 43.8 H, MCHC 35.9, RDW Std Deviation 57.7 H, RDW Coeff of Maryana 12.9, Plt Count 115 L, MPV 10.6, Immature Gran % (Auto) 0.900, Neut % (Auto) 72.5 H, Lymph % (Auto) 17.4 L, [place] % (Auto) 7.2, Eos % (Auto) 1.5, Baso % (Auto) 0.5, Absolute Neuts (auto) 6.2, Absolute Lymphs (auto) 1.49, Nucleated RBC % 0 07/25/22 06:10: Sodium 136, Potassium 4.4, Chloride 104, Carbon Dioxide 25.0, BUN 11, Creatinine 0.73, Estim Creat Clear Calc 84.14, Est GFR (MDRD) Af Amer 141, Est GFR (MDRD) Non-Af 117, BUN/Creatinine Ratio 15.1, Glucose 86, Calcium 8.6, Phosphorus 3.0, Albumin 2.9 L Micro: Microbiology 07/22/22 16:00 Urine, Clean Catch Urine Culture - Final Presumptive E. coli
[2022-07-25 08:00] VITALS: BP 154/89; PULSE 68; RESP 16; TEMP 36.7; O2SAT 100
[2022-07-25 10:08] VITALS: BP 154/89; PULSE 68
[2022-07-25] MEDS: Metoprolol Tartrate 50 MG Tablet PO (10:08)
[2022-07-25] MEDS: Lisinopril 20 MG Tablet PO (10:08)
[2022-07-25] MEDS: Folic Acid 1 MG Tablet PO (10:09)
[2022-07-25] MEDS: amLODIPine 10 MG Tablet PO (10:09)
[2022-07-25] MEDS: Thiamine Hydrochloride 100 MG Tablet PO (10:09)
--- NOTE | 2022-07-25 10:14 | DCINST_ITS ---
Discharge Instructions Diet Discharge Diet: 2000 mg Sodium Diet Activity Discharge Activity: Return to Normal Activity Follow Up Care Test Results: Test results from this visit will be discussed in further detail at your follow- up appointment, if applicable. Discharge Plan Admission Admit Date/Time: 07/22/22 19:07 Primary Reason for Your Visit: Acute alcohol withdrawal Attending Provider: Holly Hartley Primary Care Provider: Faraz Powell Consulting Providers: Washington Mccord Instructions Additional Instructions / Restrictions: Take note of changes to your medications You are strongly advised to avoid alcohol or use of any illicit drug. Avoid smoking. Follow-up with your outpatient rehab program as scheduled. Discharge Orders/Prescriptions Prescriptions: New amlodipine 10 mg Tablet 10 mg PO DAILY 30 Days Qty: 30 0RF metoprolol tartrate 50 mg Tablet 50 mg PO BID 30 Days Qty: 60 0RF Continued lisinopril 20 mg Tablet 20 mg PO DAILY ergocalciferol (vitamin D2) 1,250 mcg (50,000 unit) capsule 1,250 mcg PO .WEEKLY Label Comments: Take 1 capsule by mouth once a week Discontinued amlodipine 2.5 mg Tablet 10 mg PO DAILY metoprolol tartrate 50 mg tablet 50 mg PO DAILY Label Comments: Take 1 tablet by mouth twice a day as directed Referrals / Follow Up: Faraz Powell MD [Primary Care Provider] - Disposition Disposition (needs filled in before D/C Order can be placed): Home, Self Care
--- NOTE | 2022-07-25 10:17 | DS.PCM_ITS ---
Providers Date of Admission: 07/22/22 Date of Discharge: 07/25/22 Primary Care Physician: Dr. Faraz Powell MD Reason For Visit: ETOH DETOX Diagnosis Discharge Diagnosis (1) Alcohol withdrawal seizure: Status: Acute Code(s): F10.939 - Alcohol use, unspecified with withdrawal, unspecified; R56.9 - Unspecified convulsions (2) Alcohol abuse: Status: Acute Code(s): F10.10 - Alcohol abuse, uncomplicated (3) Hypokalemia: Status: Acute Code(s): E87.6 - Hypokalemia Medications at Discharge Home Medications lisinopril 20 mg tablet 20 mg PO DAILY bp 07/22/22 ergocalciferol (vitamin D2) 1,250 mcg (50,000 unit) capsule 1,250 mcg PO .WEEKLY supplement 07/23/22 amlodipine 10 mg tablet 10 mg PO DAILY 30 days #30 tabs 07/25/22 metoprolol succinate 50 mg tablet,extended release 24 hr 50 mg PO DAILY 30 days #30 tabs 07/25/22 Hospital Course Operations None Procedures None Summary of Care Provided Minutes Spent on Discharge: 35 Hospital Course: 61-year-old male with past medical history of hypertension, seizure disorder who comes in requesting for medical stabilization from alcohol withdrawal. Patient has history of chronic alcohol use and drinks anywhere from 2-4/5 of whiskey a day. He has a history of alcohol withdrawal seizure. He was admitted to the [facility] floor and managed on the phenobarbital withdrawal protocol with no acute issues. Patient had elevated blood pressure and that improved with resumption of his blood pressure medications. Patient was seen by bulk intake worker during this hospital stay and outpatient [facility] follow-up was scheduled. Patient had changes to his amlodipine and metoprolol. He was taking his metoprolol tartrate once a day. This was increased to twice daily in the [facility] and then switched to metoprolol succinate 50 mg daily at discharge to facilitate compliance. He needs to follow-up with his PCP within 1-2 weeks. Physical Exam Narrative Physical exam: General: Alert, Oriented x3, Cooperative, No apparent distress HEENT: Atraumatic Oral: Moist Mucosa Neck: Supple Lungs: Clear to auscultation Cardiovascular: HS I+II, regular, no murmurs Abdomen: Bowel Sounds Present, Soft, Non Tender Extremities: No edema Skin: No rashes, No breakdown Neurological: Grossly intact Psych/Mental Status: Appropriate Weight / BMI Weight Weight: 54.6 kg Body Mass Index (BMI) 19.4 ABG / Lab / Microbiology Data Result Diagrams: 07/25/22 06:10 07/25/22 06:10 Laboratory: Laboratory Results - last 24 hr 07/25/22 06:10: WBC 8.6, RBC 2.81 L, Hgb 12.3 L, Hct 34.3 L, MCV 122.1 H, MCH 43.8 H, MCHC 35.9, RDW Std Deviation 57.7 H, RDW Coeff of Maryana 12.9, Plt Count 115 L, MPV 10.6, Immature Gran % (Auto) 0.900, Neut % (Auto) 72.5 H, Lymph % (Auto) 17.4 L, [place] % (Auto) 7.2, Eos % (Auto) 1.5, Baso % (Auto) 0.5, Absolute Neuts (auto) 6.2, Absolute Lymphs (auto) 1.49, Nucleated RBC % 0 07/25/22 06:10: Sodium 136, Potassium 4.4, Chloride 104, Carbon Dioxide 25.0, BUN 11, Creatinine 0.73, Estim Creat Clear Calc 84.14, Est GFR (MDRD) Af Amer 141, Est GFR (MDRD) Non-Af 117, BUN/Creatinine Ratio 15.1, Glucose 86, Calcium 8.6, Phosphorus 3.0, Albumin 2.9 L Microbiology: Microbiology 07/22/22 16:00 Urine, Clean Catch Urine Culture - Final Presumptive E. coli D/C Instructions Discharge Diet: 2000 mg Sodium Diet Meaningful Use Info Meaningful Use Diagnoses (Choose all that apply): None applicable Discharge Plan Admission Admit Date/Time: 07/22/22 19:07 Primary Reason for Your Visit: Acute alcohol withdrawal Attending Provider: Holly Hartley Primary Care Provider: Faraz Powell Consulting Providers: Washington Mccord Instructions Additional Instructions / Restrictions: Take note of changes to your medications You are strongly advised to avoid alcohol or use of any illicit drug. Avoid smoking. Follow-up with your outpatient rehab program as scheduled. Discharge Orders/Prescriptions Prescriptions: New amlodipine 10 mg Tablet 10 mg PO DAILY 30 Days Qty: 30 0RF metoprolol succinate 50 mg tablet extended release 24 hr 50 mg PO DAILY 30 Days Qty: 30 0RF Continued lisinopril 20 mg Tablet 20 mg PO DAILY ergocalciferol (vitamin D2) 1,250 mcg (50,000 unit) capsule 1,250 mcg PO .WEEKLY Label Comments: Take 1 capsule by mouth once a week Discontinued amlodipine 2.5 mg Tablet 10 mg PO DAILY metoprolol tartrate 50 mg tablet 50 mg PO DAILY Label Comments: Take 1 tablet by mouth twice a day as directed Referrals / Follow Up: Faraz Powell MD [Primary Care Provider] - Disposition Disposition (needs filled in before D/C Order can be placed): Home, Self Care Charges/Coding Visit Charges Inpatient E&M: 59012 Disch Hosp
[2022-07-25 11:44] VITALS: BP 146/88; PULSE 71; RESP 16; TEMP 37.1; O2SAT 100
--- NOTE | 2022-07-25 12:00 | NURSING ---
pt spouse Fawn phoned and updated on discharge as pt states he doesnt have cell phone here. pt updated Fawn is aware.
== END 2022-07-25 13:29 | disposition home or self-care (01) | DRG 897 ==
LOC: ED 18:24 → MS3 20:07
PROVIDERS: Nurse Practitioner Family; Admitting Provider Internal Medicine; Emergency Provider Emergency Medicine; PCP Family Medicine; Visit Provider Internal Medicine
DX: F10.239 Alcohol dependence with withdrawal, unspecified (principal); G40.509 Epileptic seizures related to external causes, not intractable, without status epilepticus; N30.00 Acute cystitis without hematuria; E87.6 Hypokalemia; F17.210 Nicotine dependence, cigarettes, uncomplicated; I10 Essential (primary) hypertension; Z79.899 Other long term (current) drug therapy
CPT/HCPCS: 36415; 70450; 80053; 80069; 81001; 82077; 83605; 83735; 84100; 85025; 85610; 85730; 87086; 87088; 87186; 93005; 97802; 99285; 99406; J7030; J7040; J7050; A4216